=== PATIENT | female | born 1945 | race Caucasian/White ===

== ENCOUNTER → 2017-02-06 | Outpatient (CLI) | payer OTHER | END | disposition home or self-care (01) | LOC: PCVCCLINIC 11:52 | PROVIDERS: ATTEND Internal Medicine Cardiovascular Disease | DX: I25.10 Atherosclerotic heart disease of native coronary artery without angina pectoris (principal); E78.00 Pure hypercholesterolemia, unspecified; E11.9 Type 2 diabetes mellitus without complications; I10 Essential (primary) hypertension; M79.89 Other specified soft tissue disorders | CPT/HCPCS: 80061; 93005; G0463 ==

== ENCOUNTER → 2017-07-14 | Outpatient (CLI) | payer OTHER | END | disposition home or self-care (01) | LOC: PCVCIMAG 07:39 | PROVIDERS: ATTEND Internal Medicine Cardiovascular Disease | DX: I10 Essential (primary) hypertension (principal); I48.91 Unspecified atrial fibrillation; E78.5 Hyperlipidemia, unspecified; E11.9 Type 2 diabetes mellitus without complications; I25.10 Atherosclerotic heart disease of native coronary artery without angina pectoris; J44.9 Chronic obstructive pulmonary disease, unspecified; Z87.891 Personal history of nicotine dependence; Z88.0 Allergy status to penicillin; Z79.4 Long term (current) use of insulin | CPT/HCPCS: 78452; 93017; A9500 ==

== ENCOUNTER → 2018-10-05 | Outpatient (CLI) | payer OTHER ==
[~2018-10-05] MED LIST: REGADENOSON 0.4 MG/5 ML DISP.SYRIN. IV ONE
--- NOTE | 2018-10-05 12:14 | PCVCIMAG ---
APPROVED REPORT Imaging Protocol: Rest Tc-99m/Stress Tc-99m 1 day Study performed: 10/05/2018 08:44:37 Indication: Chest pain, Dyspnea Patient Location: Out-Patient Stress Nurse: Yaquelin Garcia RN, Lucy Hanley RN SC Tech:Carlene Leigh [facility] Ht: 5 ft 3 in Wt: 261 lbs BSA: 2.17 m2 HR: 84 bpm BP: 152/72 mmHg BMI: 46.22 Medical History Medical History: Hyperlipidemia, HTN, CAD, Atrial Fibrillation, COPD, Diabetes, Current Smoker, Age Medications: Plavix, lasix, hctz, insulin, victoza, losartan, metformin, xarelto, crestor, bystolic (held 24h) Allergies: PCN Previous Cardiac Procedures: PCI to Mid Diag Pretest Chest Pain Characteristics: No chest pain Resting Data Rest SPECT myocardial perfusion imaging was performed in supine position 45 minutes following the intravenous injection of 12.2 mCi of Tc-99m Sestamibi. Time of rest injection: 0840 Date: 10/05/2018 Administration Route: IV Administration Site: Left Arm Pharmacologic Stress Pharmacologic stress test was performed by injecting Regadenoson 0.4 mg IV push over 10-15 seconds immediately followed by the intravenous injection of 44.2 mCi of Tc-99m Sestamibi. Time of stress injection: 1000 Date: 10/05/2018 Administration Route: IV Administration Site: Left Arm Gated Stress SPECT was performed 45 minutes after stress injection. The images were gated to evaluate regional wall motion and calculate left ventricular ejection fraction. Stress Test Details Stress Test: Pharmacologic stress testing performed using 0.4 mg of regadenoson per 5 mL given IV over 10 seconds. Reason for pharmacologic stress test: physical limitation, uses a cane. HRMax Heart Rate (APMHR): 149 bpm Resting HR: 84 bpmTarget HR (85% APMHR): 126 bpm Max HR Achieved: 107 bpm % of APMHR: 71 Recovery HR: 99 bpm BP Resting BP: 152/72 mmHg Max BP: 150/65 mmHg Recovery BP: 146/65 mmHg ECG Resting ECG: Afib with ST & T wave abn Stress ECG: Atrial Fibrillation ST Change: Non-ischemic Recovery ECG: Same Clinical Reason for Termination: Completed protocol Stress Symptoms: Dyspnea, Chest pressure, Chest heaviness Exercise duration: 0 min 55 sec Symptoms resolved with caffeine. Nurse Comments Chest discomfort persisted for 7-10minutes; NTG 0.4mg SL x1 given by MHubert; pain resolved, last BP @ 119/57 Study Quality Study: Good Study Data Post stress, the left ventricular ejection was 66%.. SSS: 1 SRS: 0 SDS: 1 TID = 0.88. Perfusion Medium sized area of moderate reversible ischemia involving the mid/basal lateral left ventricle. Wall Motion Normal left ventricular size and function with no regional wall motion abnormalities. Nuclear Conclusion ECG Findings: negative for ischemia Clinical Findings: non-diagnostic Nuclear Findings: positive for ischemia Exercise Capacity: not assessed Left Ventricular Function: normal Medium sized area of moderate reversible ischemia involving the mid/basal lateral left ventricle. Normal left ventricular size and function with no regional wall motion abnormalities. Post stress, the left ventricular ejection was 66%. No prior study available for comparison.
== END | disposition home or self-care (01) ==
LOC: PCVCIMAG 08:19
PROVIDERS: ATTEND Internal Medicine Cardiovascular Disease
DX: I25.118 Atherosclerotic heart disease of native coronary artery with other forms of angina pectoris (principal); I10 Essential (primary) hypertension; R94.39 Abnormal result of other cardiovascular function study; R06.02 Shortness of breath; E78.5 Hyperlipidemia, unspecified; E11.9 Type 2 diabetes mellitus without complications; J44.9 Chronic obstructive pulmonary disease, unspecified; I70.1 Atherosclerosis of renal artery; F17.210 Nicotine dependence, cigarettes, uncomplicated; I48.91 Unspecified atrial fibrillation; Z79.4 Long term (current) use of insulin; Z88.1 Allergy status to other antibiotic agents; Z79.84 Long term (current) use of oral hypoglycemic drugs; Z88.0 Allergy status to penicillin; Z88.8 Allergy status to other drugs, medicaments and biological substances
CPT/HCPCS: 78452; 93017; A9500; J2785

== ENCOUNTER → 2019-01-17 | Outpatient (CLI) | payer OTHER ==
--- NOTE | 2019-01-17 10:34 | PCVCIMAG ---
EXAM: BILATERAL RENAL ULTRASOUND AND BILATERAL RENAL DUPLEX INDICATION: Hypertension FINDINGS: Right kidney: Length measures 11.8 cm. No hydronephrosis or extensive renal scarring. Right renal duplex: Adequate technical quality. 70-80% proximal renal artery stenosis. The aortic to renal artery ratio is 3.7. The renal vein is patent. Left kidney: Length measures 12.0 cm. No hydronephrosis or extensive renal scarring. Left renal duplex: Adequate technical quality. No sonographic evidence of renal artery stenosis. The aortic to renal artery ratio is 2.6. The renal vein is patent. Bladder: No obvious abnormalities. IMPRESSION: 70-80% proximal right renal artery stenosis. No left renal artery stenosis. LOC:[id number]
== END | disposition home or self-care (01) ==
LOC: PCVCIMAG 10:28
PROVIDERS: ATTEND Internal Medicine Cardiovascular Disease
DX: I10 Essential (primary) hypertension (principal)
CPT/HCPCS: 76770; 93975

== ENCOUNTER → 2019-07-25 | Outpatient (CLI) | payer OTHER ==
--- NOTE | 2019-07-25 16:42 | PCVCIMAG ---
EXAM: BILATERAL SUPERFICIAL VENOUS DUPLEX INDICATION: Leg pain and swelling. FINDINGS: Right leg: No thrombus in the common femoral, main femoral, or popliteal veins. These veins are compressible. Right Great Saphenous Vein: At the saphenofemoral junction the diameter is 8.2 mm, in the mid thigh it is 6.5 mm, and in the calf it is 5.1 mm. There is not significant venous insufficiency/reflux throughout. Venous insufficiency/reflux duration is 0 seconds. Right Small Saphenous Vein: At the saphenopopliteal junction the diameter is 6.1 mm, and in the calf it is 3.9 mm. There is not significant venous insufficiency/reflux throughout. Venous insufficiency/reflux duration is 0 seconds. There is not a cranial extension present. Left leg: No thrombus in the common femoral, main femoral, or popliteal veins. These veins are compressible. Left Great Saphenous Vein: At the saphenofemoral junction the diameter is 8.8 mm, in the mid thigh it is 9.6 mm, and in the calf it is 6.4 mm. There is not significant venous insufficiency/reflux throughout. Venous insufficiency/reflux duration is 0.3 seconds. Left Small Saphenous Vein: At the saphenopopliteal junction the diameter is 3.5 mm, and in the calf it is 3.6 mm. There is significant venous insufficiency/reflux at the level of the calf only. Venous insufficiency/reflux duration is 3.5 seconds. There is a cranial extension present. IMPRESSION: Right Great Saphenous Vein: No significant venous insufficiency/reflux is present as noted above. Right Small Saphenous Vein: No significant venous insufficiency/reflux is present as noted above. Left Great Saphenous Vein: No significant venous insufficiency/reflux is present as noted above. Left Small Saphenous Vein: Significant venous insufficiency/reflux is present as noted above. Note is made the vein is diminutive in size and would not meet criteria for ablation procedure. LOC:[id number]
== END | disposition home or self-care (01) ==
LOC: PCVCIMAG 12:30
PROVIDERS: ATTEND Internal Medicine Cardiovascular Disease
DX: M79.661 Pain in right lower leg (principal); M79.662 Pain in left lower leg; R60.9 Edema, unspecified; Z88.1 Allergy status to other antibiotic agents; Z88.0 Allergy status to penicillin
CPT/HCPCS: 93970